=== PATIENT | male | born 1985 | race Caucasian/White ===

== ENCOUNTER 2017-11-06 02:54 | Emergency (ER) | payer OTHER | END 2017-11-06 07:29 | disposition home or self-care (01) | LOC: FTE 02:54 | DX: J06.9 Acute upper respiratory infection, unspecified (principal); R03.0 Elevated blood-pressure reading, without diagnosis of hypertension; F17.210 Nicotine dependence, cigarettes, uncomplicated | CPT/HCPCS: 71045; 99283-25 ==

== ENCOUNTER 2019-05-23 14:30 | Emergency (ER) | payer OTHER | END 2019-05-23 16:27 | disposition home or self-care (01) | LOC: E/R 16:27 | DX: H44.002 Unspecified purulent endophthalmitis, left eye (principal) | CPT/HCPCS: 99283 ==